=== PATIENT | female | born 1965 | race African-American/Black ===

== ENCOUNTER 2025-03-26 01:39 | Emergency (ER) | payer MEDICAID, OTHER ==
[~2025-03-26] VITALS: Ht 182.9 cm; Wt 100.0 kg
[2025-03-26 01:41] VITALS: O2SAT 98
[2025-03-26] MEDS: CYCLOBENZAPRINE 10MG TABLET PO ONE (03:04)
[2025-03-26] MEDS: LIDOCAINE 5% PATCH TOP SCH (03:04)
[2025-03-26] MEDS: KETOROLAC 15MG/ML VIAL IM ONE (03:05)
[2025-03-26] MEDS ORDERED: NAPR-1176 MT (03:16)
[2025-03-26] MEDS ORDERED: CYCL5TAB3 MT (03:16)
[2025-03-26] MEDS ORDERED: LIDO-53 TP (03:16)
[2025-03-26 03:31] VITALS: BP 145/83; PULSE 67; RESP 16; TEMP 36.9; O2SAT 100
== END 2025-03-26 03:32 | disposition home or self-care (01) ==
LOC: ER 01:39
DX: M54.40 Lumbago with sciatica, unspecified side (principal); Z79.1 Long term (current) use of non-steroidal anti-inflammatories (NSAID); Z88.0 Allergy status to penicillin
CPT/HCPCS: 99283; 96372; J1885